=== PATIENT | female | born 1955 | race Caucasian/White ===

== ENCOUNTER 2016-10-05 08:31 | Emergency (ER) | payer BC ==
[2016-10-05 08:41] VITALS: BP 124/65
[2016-10-05] MEDS ORDERED: NS 0.9% 1000 ML* 1,000 ML IV ONE (09:15)
--- NOTE | 2016-10-05 12:05 | UC ---
adrien Manning Timothy, scribed for Dewayne Mckeon MD on 10/05/16 at 0850 . Lower Extremity/Ankle HPI - HPI Summary HPI Summary: Keila Gunter is a 61 yo female presenting to [facility] with 5/10 muscle cramps in her bilateral lower extremities since 10/02/16. She notes she drank some wine evening and is concerned for dehydration, though she has been drinking water with no relief. She notes she has been doing yoga in a hot room for the past week or so. She denies any fever, CP, SOB. She denies any recent overuse of her muscles, and does not believe she has been exposed to any deer ticks, although she does note that she went camping in August, though she did not see any rashes or evidence of any tick bite. She denies any swelling or limits to her ROM. She has self-medicated with ibuprofen and advil with no relief. Her MHx includes breast reduction, left 5th metatarsal Fx and repair. - History of Current Complaint Stated Complaint: MUSCLE CRAMPS Time Seen by Provider: 10/05/16 08:52 Hx Obtained From: Patient Onset/Duration: Sudden Onset, Lasting Days, Still Present Severity Initially: Moderate Severity Currently: Moderate Pain Intensity: 5 Pain Scale Used: 0-10 Numeric Able to Bear Weight: Yes - Allergies/Home Medications Allergies/Adverse Reactions: Allergies Allergy/AdvReac Type Severity Reaction Status Date / Time No Known Allergies Allergy Verified 10/05/16 08:36 Home Medications: Home Medications NK [No Home Medications Reported] 10/05/16 [History Confirmed 10/05/16] PMH/Surg Hx/FS Hx/Imm Hx - Surgical History Surgical History: Yes Surgery Procedure, Year, and Place: left foot May 2014, right foot start of June 2014. SHOULDER - Family History Known Family History: Negative: Cardiac Disease - Social History Alcohol Use: Weekly Alcohol Amount: 1 glass of wine Substance Use Type: None Smoking Status (MU): Never Smoked Tobacco Review of Systems Constitutional: Negative Skin: Negative Eyes: Negative ENT: Negative Respiratory: Negative Cardiovascular: Negative Gastrointestinal: Negative Genitourinary: Negative Motor: Negative Neurovascular: Negative Musculoskeletal: Other: - lower extremity muscle cramping Neurological: Negative Psychological: Negative All Other Systems Reviewed And Are Negative: Yes Physical Exam Triage Information Reviewed: Yes Vital Signs: Initial Vital Signs Temp 98.6 F 10/05/16 08:36 Pulse 60 10/05/16 08:36 Resp 16 10/05/16 08:36 BP 124/65 10/05/16 08:36 Pulse Ox 100 10/05/16 08:36 Vital Signs Reviewed: Yes - Additional Comments The patient is well-nourished in no acute distress and in no acute pain. The skin is warm and dry and skin color reflects adequate perfusion. HEENT: The head is normocephalic and atraumatic. The pupils are equal and reactive. The conjunctivae are clear and without drainage. Nares are patent and without drainage. Mouth reveals moist mucous membranes and the throat is without erythema and exudate. The external ears are intact. The ear canals are patent and without drainage. The tympanic membranes are intact. Neck is supple with full range of motion and non-tender. There are no carotid bruits. There is no neck vein distension. Respiratory: Chest is non-tender. Lungs are clear to auscultation and breath sounds are symmetrical and equal. Cardiovascular: Heart is regular rate and rhythm. There is no murmur or rub auscultated. There is no peripheral edema and pulses are symmetrical and equal. Abdomen: The abdomen is soft and non-tender. There are normal bowel sounds heard in all four quadrants and there is no organomegaly palpated. No bruits. Musculoskeletal: There is no back pain noted. Extremities are non-tender with full range of motion. There is good capillary refill. There is no peripheral edema or calf tenderness elicited. Neurological: Patient is alert and oriented to person, place and time. The patient has symmetrical motor strength in all four extremities. Cranial nerves are grossly intact. Deep tendon reflexes are symmetrical and equal in all four extremities. Psychiatric: The patient has an appropriate affect and does not exhibit any anxiety or depression. Re-Evaluation - Re-Evaluation First Eval Re-Evaluation Time: 10:26 Change: Unchanged Comment: Pt is still experiencing pain in her lower extremities afetr administration of IV fluids. Second Eval Re-Evaluation Time: 10:32 Change: Unchanged Comment: Discussed course of Tx with Pt, she is agreeable to this plan. Lower Extremity Course/Dx - Course Course Of Treatment: Keila Gunter is a 61 yo female presenting to [facility] with 5/ 10 muscle cramps in her bilateral lower extremities since 7/28/17, concerned for dehydration. Pt medication list reviewed this visit. Pt advised that all labs drawn today will be unavailable for at least 24 hours. In the urgent care course she recieved IV fluids. She will have CBC, CMP, lyme serology, sed rate, and magnesium labs drawn today. After clinical examination and administration of IV fluids, she will be discharged home with bilateral leg pain and dehydration with appropriate instructions and follow up. - Differential Dx/Diagnosis Differential Diagnosis/HQI/PQRI: Other - dehydration, proteinuria, lyme disease , electrolyte imbalance, claudication, radiculopathy Provider Diagnoses: bilateral leg pain, dehydration Discharge - Discharge Plan Condition: Stable Disposition: HOME Patient Education Materials: Leg Pain (ED), Dehydration (ED) Referrals: Meaghan Weinstein MD [Primary Care Provider] - 2 Days Additional Instructions: Please follow up with your primary care physician regarding your visit to urgent care today. Return to urgent care or the emergency department with any new or recurring symptoms. The documentation as recorded by the adrien lema Timothy accurately reflects the service I personally performed and the decisions made by , Dewayne Mckeon MD.
[2016-10-05 13:11] LABS: Hematocrit 41 % (35-47); Hemoglobin 13.4 g/dl (12.0-16.0); Mean Corpuscular HGB Conc 33 g/dl (31-36); Mean Corpuscular Hemoglobin 32 pg (27-31); Mean Corpuscular Volume 96 fL (80-97); Mean Platelet Volume 9 um3 (7.4-10.4); Red Blood Count 4.24 10^6/ul (4.0-5.4); Red Cell Distribution Width 13 % (10.5-15); White Blood Count 3.8 10^3/ul (3.5-10.8)
[2016-10-05 13:41] LABS: BUN/Creatinine Ratio 23.8 (8-20); Calcium 8.7 mg/dL (8.6-10.3); EGFR African American 93.2 (>60); EGFR Non-African American 72.4 (>60); Globulin 2.5 g/dL (2-4); Magnesium 2.2 mg/dL (1.9-2.7); Total Bilirubin 0.5 mg/dL (0.2-1.0); Total Protein 6.5 g/dL (6.4-8.9)
[2016-10-05 13:52] LABS: Potassium 4.4 mmol/L (3.5-5.0)
[2016-10-05 13:54] LABS: Erythrocyte Sed Rate 16 mm/Hr (0-30)
== END 2016-10-05 10:44 | disposition home or self-care (01) ==
LOC: UCEAST 08:31
DX: M79.605 Pain in left leg (principal); M79.604 Pain in right leg; E86.0 Dehydration
CPT/HCPCS: 36415; 80053; 81003; 83735; 85025; 85652; 86618; 96360; 99211; G0463